=== PATIENT | female | born 1975 | race Two or more races ===

== ENCOUNTER 2022-11-04 00:15 | Emergency (ER) | payer SELFPAY ==
[~2022-11-04] VITALS: Ht 160 cm; Wt 71.3 kg
[2022-11-04 01:00] VITALS: BP 120/80
== END 2022-11-04 03:41 | disposition home or self-care (01) ==
LOC: ER 00:15
DX: S16.1XXA Strain of muscle, fascia and tendon at neck level, initial encounter (principal); R51.9 Headache, unspecified; V49.59XA Passenger injured in collision with other motor vehicles in traffic accident, initial encounter; Y93.89 Activity, other specified; Y92.410 Unspecified street and highway as the place of occurrence of the external cause; Y99.8 Other external cause status